=== PATIENT | female | born 1980 ===

== ENCOUNTER 2018-07-02 07:16 | Outpatient (CLI) | payer OTHER | END 2018-07-02 07:28 | disposition home or self-care (01) | LOC: TOM 07:16 | DX: R73.09 Other abnormal glucose (principal); E11.00 Type 2 diabetes mellitus with hyperosmolarity without nonketotic hyperglycemic-hyperosmolar coma (NKHHC); R10.9 Unspecified abdominal pain; R16.0 Hepatomegaly, not elsewhere classified; E78.49 Other hyperlipidemia ==

== ENCOUNTER 2018-10-31 12:16 | Emergency (ER) | payer OTHER ==
[~2018-10-31] VITALS: Ht 157.5 cm; Wt 63.5 kg
[2018-10-31] MEDS ORDERED: METFORMIN HCL500 MG PO (12:43)
[2018-10-31] MEDS ORDERED: LIPITOR20 MG PO (12:43)
== END 2018-10-31 16:38 | disposition home or self-care (01) ==
LOC: ER 12:16
DX: B34.9 Viral infection, unspecified (principal)

== ENCOUNTER 2020-10-11 07:17 | Outpatient (CLI) | payer OTHER ==
[~2020-10-11 07:17] MED LIST: LIPITOR20 MG PO; METFORMIN HCL500 MG PO
== END 2020-10-11 07:31 | disposition home or self-care (01) ==
LOC: RAD 07:17
PROVIDERS: ATTEND General Practice
DX: K76.0 Fatty (change of) liver, not elsewhere classified (principal); E04.2 Nontoxic multinodular goiter; E11.65 Type 2 diabetes mellitus with hyperglycemia; E11.10 Type 2 diabetes mellitus with ketoacidosis without coma; Z13.89 Encounter for screening for other disorder; Z13.220 Encounter for screening for lipoid disorders; E07.89 Other specified disorders of thyroid; F41.8 Other specified anxiety disorders; R21 Rash and other nonspecific skin eruption; N94.89 Other specified conditions associated with female genital organs and menstrual cycle; R07.89 Other chest pain

== ENCOUNTER 2022-06-30 08:12 | Outpatient (CLI) | payer OTHER | END 2022-06-30 11:59 | disposition home or self-care (01) | LOC: TOM 08:12 | PROVIDERS: ATTEND General Practice | DX: R05.9 Cough, unspecified (principal); R06.02 Shortness of breath; R07.1 Chest pain on breathing; E07.9 Disorder of thyroid, unspecified; E78.5 Hyperlipidemia, unspecified; E11.8 Type 2 diabetes mellitus with unspecified complications; Z13.220 Encounter for screening for lipoid disorders; Z13.228 Encounter for screening for other metabolic disorders; Z13.89 Encounter for screening for other disorder ==

== ENCOUNTER 2022-11-08 08:42 | Outpatient (CLI) | payer OTHER | END 2022-11-08 08:53 | disposition home or self-care (01) | LOC: TOM 08:42 | DX: J84.9 Interstitial pulmonary disease, unspecified (principal); J45.20 Mild intermittent asthma, uncomplicated; R05.8 Other specified cough; R91.1 Solitary pulmonary nodule ==